=== PATIENT | female | born 1955 | race Caucasian/White ===

== ENCOUNTER 2019-02-03 02:47 | Emergency (ER) | payer BC, OTHER ==
[~2019-02-03] VITALS: Ht 157.5 cm; Wt 102.1 kg
[2019-02-03 03:08] LABS: BASOPHILS # (AUTO) 0.1 10^3/uL (0.0-0.1); BASOPHILS % (AUTO) 0 % (0-10); EOSINOPHILS # (AUTO) 0.4 10^3/uL (0.0-0.3); EOSINOPHILS % (AUTO) 3 % (0-10); HEMATOCRIT 41 % (35-52); HEMOGLOBIN 14.1 G/DL (11.5-16.0); LYMPHOCYTES # (AUTO) 1.9 X 10^3 (1.0-4.0); LYMPHOCYTES % (AUTO) 13 % (12-44); MEAN CORPUSCULAR HEMOGLOBIN 32 PG (25-34); MEAN CORPUSCULAR HGB CONC 35 G/DL (32-36); MEAN CORPUSCULAR VOLUME 91 FL (80-99); MEAN PLATELET VOLUME 10.4 FL (7.4-10.4); MONOCYTES % (AUTO) 7 % (0-12); NEUTROPHILS # (AUTO) 11.9 X 10^3 (1.8-7.8); NEUTROPHILS % (AUTO) 78 % (42-75); PLATELET COUNT 274 10^3/uL (130-400); RED CELL DISTRIBUTION WIDTH 13.2 % (10.0-14.5); WHITE BLOOD COUNT 15.2 10^3/uL (4.3-11.0)
[2019-02-03] MEDS ORDERED: FAMOTIDINE 20MG/2ML IV (PEPCID) IVP ONE (03:15)
[2019-02-03] MEDS ORDERED: LIDOCAINE 2% VISCOUS 15 ML UDC PO ONE (03:15)
[2019-02-03] MEDS ORDERED: ONDANSETRON 4 MG/2 ML (SDV) Z0FRAN IVP ONE (03:15)
[2019-02-03] MEDS ORDERED: ANTACID SUSP 30 ML UDC (MYLANTA) PO ONE (03:15)
[2019-02-03 03:24] LABS: INR 0.9 (0.8-1.4); PROTHROMBIN TIME PATIENT 12.3 SEC (12.2-14.7)
[2019-02-03 03:32] LABS: ALANINE AMINOTRANSFERASE 24 U/L (0-55); ALBUMIN 4.6 GM/DL (3.2-4.5); ALKALINE PHOSPHATASE 115 U/L (40-136); BILIRUBIN,TOTAL 0.9 MG/DL (0.1-1.0); BUN/CREATININE RATIO 18; CALCIUM 10.4 MG/DL (8.5-10.1); CARBON DIOXIDE 22 MMOL/L (21-32); CHLORIDE 97 MMOL/L (98-107); CREATININE SERUM 1.01 MG/DL (0.60-1.30); GFR ESTIMATED 55; GLUCOSE 145 MG/DL (70-105); LIPASE 13 U/L (8-78); POTASSIUM 5.1 MMOL/L (3.6-5.0); SODIUM 135 MMOL/L (135-145); TOTAL PROTEIN 8.2 GM/DL (6.4-8.2)
[2019-02-03] MEDS ORDERED: fentaNYL INJECTION 100 MCG/2 ML AMP IVP ONE ×2 (04:00→06:15)
--- NOTE | 2019-02-03 04:09 | ED Abdominal Pain ---
General Chief Complaint: Abdominal/GI Problems Stated Complaint: STOMACH PAIN, THROWING UP Nursing Triage Note: Pt complaining of epigastric pain that started around midnight tonight. Pt took Prilosec for heartburn but states that it didn't help. Sepsis Screen: No Definite Risk Source of Information: Patient, EMS (PROSPER ALMENDAREZ MD) History of Present Illness Date Seen by Provider: February 03, 2019 Time Seen by Provider: 02:53 Initial Comments This 63-year-old woman presents to the emergency room with a burning pain in the epigastric region since around midnight. She has had intermittent episodes similar to this over the past few years but they usually improve and short time and with acid reducing medications. This pain has not improved. She rates the pain as 9/10. The pain seems to have a burning sensation radiating up into the chest like heartburn. She has tenderness in the epigastrium. She takes omeprazole 20 mg daily as directed by her PCP. She did have an episode of vomiting with this pain and a little bit of diarrhea. (PROSPER ALMENDAREZ MD) Allergies and Home Medications Allergies Coded Allergies: No Known Drug Allergies (Unverified , 02/03/19) Patient Home Medication List Home Medication List Reviewed: Yes (PROSPER ALMENDAREZ MD) Review of Systems Review of Systems Constitutional: no symptoms reported EENTM: No Symptoms Reported Respiratory: No Symptoms Reported Cardiovascular: No Symptoms Reported Gastrointestinal: See HPI Genitourinary: No Symptoms Reported Musculoskeletal: no symptoms reported Skin: no symptoms reported Psychiatric/Neurological: No Symptoms Reported Endocrine: No Symptoms Reported (PROSPER ALMENDAREZ MD) Past Ehlnyjf-Ijmxjm-Rbbjgh Hx Past Med/Social Hx: Reviewed Nursing Past Med/Soc Hx (PROSPER ALMENDAREZ MD) Patient Social History Alcohol Use: Denies Use Recreational Drug Use: No Smoking Status: Never a Smoker 2nd Hand Smoke Exposure: No Recent Foreign Travel: No Contact w/Someone Who Travel: No Recent Infectious Disease Expo: No Recent Hopitalizations: No Physical Abuse: No Sexual Abuse: No Mistreated: No (PROSPER ALMENDAREZ MD) Past Medical History Surgeries: Yes Hysterectomy Respiratory: No Cardiac: Yes High Cholesterol, Hypertension Neurological: No Genitourinary: No Gastrointestinal: Yes Gastroesophageal Reflux Musculoskeletal: No Endocrine: No HEENT: No Cancer: No Psychosocial: No Integumentary: No Blood Disorders: No (PROSPER ALMENDAREZ MD) Physical Exam Vital Signs Vital Signs - First Documented 02/03/19 02/03/19 03:10 06:30 Temp 97.5 Pulse 64 Resp 18 B/P (MAP) 158/79 (105) Pulse Ox 97 O2 Delivery Room Air O2 Flow Rate 2.00 (PARTHA HOLLINGSWORTH) Vital Signs Capillary Refill : Less Than 3 Seconds (PROSPER ALMENDAREZ MD) Height/Weight/BMI Height: 5'2.00" Weight: 225lbs. oz. 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, no motor/sensory deficits, alert, normal mood/affect, oriented x 3 Skin: normal color, warm/dry (PROSPER ALMENDAREZ MD) Progress/Results/Core Measures Results/Orders Lab Results Laboratory Tests Test 02/03/19 03:00 02/03/19 04:47 Range/Units White Blood Count 15.2 H 4.3-11.0 10^3/uL Red Blood Count 4.46 4.35-5.85 10^6/uL Hemoglobin 14.1 11.5-16.0 G/DL Hematocrit 41 35-52 % Mean Corpuscular Volume 91 80-99 FL Mean Corpuscular Hemoglobin 32 25-34 PG Mean Corpuscular Hemoglobin Concent 35 32-36 G/DL Red Cell Distribution Width 13.2 10.0-14.5 % Platelet Count 274 130-400 10^3/uL Mean Platelet Volume 10.4 7.4-10.4 FL Neutrophils (%) (Auto) 78 H 42-75 % Lymphocytes (%) (Auto) 13 12-44 % Monocytes (%) (Auto) 7 0-12 % Eosinophils (%) (Auto) 3 0-10 % Basophils (%) (Auto) 0 0-10 % Neutrophils # (Auto) 11.9 H 1.8-7.8 X 10^3 Lymphocytes # (Auto) 1.9 1.0-4.0 X 10^3 Monocytes # (Auto) 1.0 0.0-1.0 X 10^3 Eosinophils # (Auto) 0.4 H 0.0-0.3 10^3/uL Basophils # (Auto) 0.1 0.0-0.1 10^3/uL Neutrophils % (Manual) 82 % Lymphocytes % (Manual) 10 % Monocytes % (Manual) 4 % Eosinophils % (Manual) 4 % Prothrombin Time 12.3 12.2-14.7 SEC INR Comment 0.9 0.8-1.4 Activated Partial Thromboplast Time 31 24-35 SEC Sodium Level 135 135-145 MMOL/L Potassium Level 5.1 H 3.6-5.0 MMOL/L Chloride Level 97 L 98-107 MMOL/L Carbon Dioxide Level 22 21-32 MMOL/L Anion Gap 16 H 5-14 MMOL/L Blood Urea Nitrogen 18 7-18 MG/DL Creatinine 1.01 0.60-1.30 MG/DL Estimat Glomerular Filtration Rate 55 BUN/Creatinine Ratio 18 Glucose Level 145 H 70-105 MG/DL Calcium Level 10.4 H 8.5-10.1 MG/DL Corrected Calcium 8.5-10.1 MG/DL Magnesium Level 3.0 H 1.8-2.4 MG/DL Total Bilirubin 0.9 0.1-1.0 MG/DL Aspartate Amino Transf (AST/SGOT) 36 H 5-34 U/L Alanine Aminotransferase (ALT/SGPT) 24 0-55 U/L Alkaline Phosphatase 115 40-136 U/L Myoglobin 32.3 10.0-92.0 NG/ML Troponin I < 0.028 <0.028 NG/ML Total Protein 8.2 6.4-8.2 GM/DL Albumin 4.6 H 3.2-4.5 GM/DL Lipase 13 8-78 U/L Urine Color YELLOW Urine Clarity CLEAR Urine pH 6.5 5-9 Urine Specific [place] 1.010 L 1.016-1.022 Urine Protein NEGATIVE NEGATIVE Urine Glucose (UA) NEGATIVE NEGATIVE Urine Ketones NEGATIVE NEGATIVE Urine Nitrite NEGATIVE NEGATIVE Urine Bilirubin NEGATIVE NEGATIVE Urine Urobilinogen NORMAL NORMAL MG/DL Urine Leukocyte Esterase NEGATIVE NEGATIVE Urine RBC (Auto) NEGATIVE NEGATIVE Urine RBC NONE /HPF Urine WBC NONE /HPF Urine Squamous Epithelial Cells 0-2 /HPF Urine Crystals NONE /LPF Urine Bacteria TRACE /HPF Urine Casts NONE /LPF Urine Mucus NEGATIVE /LPF Urine Culture Indicated NO (PARTHA HOLLINGSWORTH) My Orders Orders - PARTHA HOLLINGSWORTH Fentanyl Injection (Sublimaze Injection (02/03/19 06:15) (PARTHA HOLLINGSWORTH) Medications Given in ED Current Medications Medications Dose Ordered Sig/Russell Route Start Time Stop Time Status Last Admin Dose Admin Al Hydrox/Mg Hydrox/Simethicone 30 ml ONCE ONCE PO 02/03/19 03:15 02/03/19 03:16 DC 02/03/19 03:19 30 ML Famotidine 20 mg ONCE ONCE IVP 02/03/19 03:15 02/03/19 03:16 DC 02/03/19 03:20 20 MG Fentanyl Citrate 50 mcg ONCE ONCE IVP 02/03/19 04:00 02/03/19 04:01 DC 02/03/19 04:00 50 MCG Fentanyl Citrate 100 mcg ONCE ONCE IVP 02/03/19 06:15 02/03/19 06:16 DC 02/03/19 06:13 100 MCG Lidocaine HCl 15 ml ONCE ONCE PO 02/03/19 03:15 02/03/19 03:16 DC 02/03/19 03:19 15 ML Ondansetron HCl 8 mg ONCE ONCE IVP 02/03/19 03:15 02/03/19 03:16 DC 02/03/19 03:19 8 MG (PARTHA HOLLINGSWORTH) Vital Signs/I&O 02/03/19 02/03/19 02/03/19 02/03/19 03:10 05:15 06:30 06:31 Temp 97.5 Pulse 64 59 56 Resp 18 16 16 B/P (MAP) 158/79 (105) 139/57 (84) 123/46 (71) Pulse Ox 97 96 99 O2 Delivery Room Air Room Air Nasal Cannula Nasal Cannula O2 Flow Rate 2.00 2.00 (PARTHA HOLLINGSWORTH) Blood Pressure Mean: 105 Progress Progress Note #1: Time: 04:07 Progress Note Patient reports her pain decreased from 9/10 down to 5/10 after GI cocktail. She states there is still pain in the epigastrium and left upper quadrant as well as tenderness to palpation. Workup has been unremarkable thus far except for white count of 15,000 and minor electrolyte abnormalities. I discussed further workup with the patient including CT scan of the abdomen and pelvis to assess for other causes of her abdominal pain such as cholecystitis, perforated ulcer, etc. Risk of radiation exposure was discussed. Patient except to risk and wishes to proceed with CT scan. Fentanyl is being given for additional pain control. Progress Note #2: Time: 06:[address] demonstrated sludge and/or tiny stones layering in the gallbladder. There is no evidence of acute cholecystitis. By my interpretation, there appears to be some calcification of the gallbladder wall. Case was discussed with Dr. Kapadia. Since he would likely direct the patient to have a ultrasound scan of the gallbladder on an outpatient basis, we elected to hold the patient here until until the ultrasound technicians arrived this morning. Patient is agreeable to this plan. We will keep her nothing by mouth until then. Pain is presently controlled. Care of this patient is being transitioned to Dr. Hollingsworth. He will communicate ultrasound results to Dr. Kapadia. (PROSPER ALMENDAREZ MD) Progress Note : Time: 06:19 Progress Note Met the patient and reviewed the history and examination and agree with the above documented history examination by Dr. Martin. Assumed care of the patient at shift change. I agree with plan to obtain an ultrasound this morning as outlined out by general surgery. Patient says her pain is coming back and would like something more. They prefer her to be nothing by mouth so we'll give her some fentanyl. She says the 50 g before did not really do much for her so we have ordered 100 g. Her plan is to sleep for the next hour and a half. (PARTHA HOLLINGSWORTH) Initial ECG Impression Date: February 03, 2019 Initial ECG Impression Time: 03:14 Initial ECG Rate: 61 Initial ECG Rhythm: Normal Sinus Initial ECG Intervals: Normal Initial ECG Impression: Normal Comment Normal sinus rhythm with no ST elevation or depression. No abnormal intervals or axis deviation. (PROSPER ALMENDAREZ MD) Diagnostic Imaging Diagonstic Imaging: Xray Plain Films/CT/US/NM/MRI: chest Comments Chest x-ray viewed by me. Report not yet available. Elevation of the right hemidiaphragm. No other acute abnormalities appreciated. (PROSPER ALMENDAREZ MD) Comments NAME: NANDO GREENBERG [facility] REC#: [id number] PT STATUS: REG ER : 1955 PHYSICIAN: PROSPER ALMENDAREZ MD ADMIT DATE: 02/03/19/ER Draft Date of Exam:02/03/19 CHEST 1 VIEW, AP/PA ONLY INDICATION: Epigastric pain, chest pain. TECHNIQUE: Single frontal view of the chest. COMPARISON: None FINDINGS: The lung volumes are normal. No focal consolidation is seen. A calcified granuloma is seen at the right lung base. No large pleural effusion or pneumothorax is seen. The cardiomediastinal silhouette is normal in size and contour. No acute osseous abnormality is seen. IMPRESSION: No acute pulmonary abnormality seen. Dictated on workstation # [id number] Dict: 02/03/19719 Trans: 02/03/19 0721 [id number] Interpreted by: ULICES LAGUERRE MD Electronically signed by: Diagonstic Imaging: CT Plain Films/CT/US/NM/MRI: abdomen, pelvis Comments NAME: NANDO GREENBERG [facility] REC#: [id number] PT STATUS: REG ER : 1955 PHYSICIAN: PROSPER ALMENDAREZ MD ADMIT DATE: 02/03/19/ER Draft Date of Exam:02/03/19 CT ABDOMEN/PELVIS W PROCEDURE: CT abdomen and pelvis with contrast. TECHNIQUE: Multiple contiguous axial images were obtained through the abdomen and pelvis after administration of intravenous contrast. Auto Exposure Controls were utilized during the CT exam to meet ALARA standards for radiation dose reduction. INDICATION: Epigastric pain. COMPARISON: None FINDINGS: There is a calcified granuloma at the right lung base. The heart is normal in size. The liver demonstrates calcified granulomas. There is a 5 mm hypodense focus in the right liver which is too small to characterize. Splenic granulomas are noted. The spleen appears normal. There is a 13 mm right adrenal adenoma. The left adrenal gland appears normal. The kidneys appear normal. A small splenule is noted. There are tiny hyperdense calculi in the gallbladder without pericholecystic edema or significant wall thickening appreciated. There is a very small hiatal hernia. The bowel loops are nondistended without evidence of obstruction. The appendix is normal. There is no free fluid or free air. There is mild sigmoid colon diverticulosis without diverticulitis. No acute osseous abnormality is seen. There are advanced degenerative changes at L1-L2. IMPRESSION: 1. Minimal cholelithiasis. No CT findings of cholecystitis. 2. Very small hiatal hernia. 3. Colonic diverticulosis without diverticulitis. 4. Small right adrenal adenoma. Dictated on workstation # [id number] Dict: 02/03/19719 Trans: 02/03/1933 [id number] Interpreted by: ULICES LAGUERRE MD Electronically signed by: Reviewed: Reviewed by Me Diagonstic Imaging: Ultrasound Plain Films/CT/US/NM/MRI: abdomen (ruq) Comments Sludge but no stones. Gallbladder wall thickness 2.2 with greatest diameter. No pericholecystic fluid or evidence of inflammation. Reviewed: Reviewed by Me (PARTHA HOLLINGSWORTH) Consults : Consulting Physician: CLAUDE KAPADIA MD Consults Notes Discussed case lab imaging with Dr. Kapadia and he would like to see the patient tomorrow at 1400. (PARTHA HOLLINGSWORTH) Departure Impression Primary Impression: Epigastric pain Additional Impressions: Nausea vomiting and diarrhea Leukocytosis Qualified Codes: D72.829 - Elevated white blood cell count, unspecified Disposition: HOME, SELF-CARE Condition: Improved Departure-Patient Inst. Decision time for Depature: 07:40 (PARTHA HOLLINGSWORTH) Referrals: DAVID JACOBSON MD (PCP) Primary Care Physician CLAUDE KAPADIA MD Patient Instructions: HIDA Scan (DC) Add. Discharge Instructions: There is no evidence that you're having an infection in your gallbladder. The gallbladder however does have some sludge which can sometimes cause problems with emptying and result in a lot of pain and nausea. There are other possibilities and these can all be discussed outpatient with Dr. Kapadia, general surgery. He would like to see you tomorrow, 02/04/2019@1400 in the clinic to discuss these possibilities and appropriate management. Continue to take a daily antacid such as omeprazole 40 mg. Would be reasonable also use of Rolaids, Tums, Maalox etc. if you're having a re-flare of your pain. Avoid spicy, greasy foods or dairy and eat lots of fiber. You might start with a liquid diet and advance it towards more solid foods as you tolerated without nausea or pain. If you have nausea take one tablet of Zofran every 6 hours as needed. If you have difficulty and pain that Tylenol or ibuprofen doesn't help then you may use the hydrocodone one tablet every 6 hours as needed. All discharge instructions reviewed with patient and/or family. Voiced understanding. Scripts Hydrocodone Bit/Acetaminophen (Hydrocodone/Acetaminophen 5/325mg Tablet) 1 Tab Tab 1-2 EACH PO Q6H PRN for PAIN-MODERATE MDD 10 for 3 Days, #14 TAB 0 Refills Prov: PARTHA HOLLINGSWORTH 02/03/19 Ondansetron (Ondansetron Odt) 4 Mg Tab.rapdis 4 MG PO Q6H PRN for NAUSEA/VOMITING, #8 TAB 0 Refills Prov: PARTHA HOLLINGSWORTH 02/03/19 Work/School Note: Work Release Form Date Seen in the Emergency Department: February 03, 2019 Return to Work: February 04, 2019 Restrictions: No Restrictions PROSPER ALMENDAREZ MD February 03, 2019 04:09 PARTHA HOLLINGSWORTH February 03, 2019 06:18
[2019-02-03 04:15] LABS: EOSINOPHILS % (MANUAL) 4 %; LYMPHOCYTES % (MANUAL) 10 %; MONOCYTES % (MANUAL) 4 %; NEUTROPHILS % (MANUAL) 82 %
[2019-02-03] MEDS ORDERED: HOLD METFORMIN - RECEIVED CONTRAST 20 ML VIAL IV SCH (04:15)
[2019-02-03] MEDS ORDERED: IOHEXOL 350 MG/ML 100 ML (OMNIPAQUE 350) VIAL IV ONE (04:15)
[2019-02-03 04:56] LABS: BILIRUBIN,URINE NEGATIVE (NEGATIVE); CLARITY,URINE CLEAR; COLOR,URINE YELLOW; GLUCOSE, URINE (UA) NEGATIVE (NEGATIVE); KETONES,URINE NEGATIVE (NEGATIVE); LEUKOCYTE ESTERASE ,URINE NEGATIVE (NEGATIVE); NITRITE,URINE NEGATIVE (NEGATIVE); PH,URINE 6.5 (5-9); PROTEIN,URINE NEGATIVE (NEGATIVE); UROBILINOGEN,URINE NORMAL (NORMAL)
[2019-02-03 05:10] LABS: BACTERIA,URINE TRACE /HPF; SQUAMOUS EPITHELIAL CELL,UR 0-2 /HPF
[2019-02-03 05:15] VITALS: BP 139/57
[2019-02-03 06:31] VITALS: BP 123/46
--- NOTE | 2019-02-03 07:21 | Diagnostic Imaging Report ---
INDICATION: Epigastric pain, chest pain. TECHNIQUE: Single frontal view of the chest. COMPARISON: None FINDINGS: The lung volumes are normal. No focal consolidation is seen. A calcified granuloma is seen at the right lung base. No large pleural effusion or pneumothorax is seen. The cardiomediastinal silhouette is normal in size and contour. No acute osseous abnormality is seen. IMPRESSION: No acute pulmonary abnormality seen. Dictated by: Dictated on workstation # [id number]
--- NOTE | 2019-02-03 07:34 | Diagnostic Imaging Report ---
PROCEDURE: CT abdomen and pelvis with contrast. TECHNIQUE: Multiple contiguous axial images were obtained through the abdomen and pelvis after administration of intravenous contrast. Auto Exposure Controls were utilized during the CT exam to meet ALARA standards for radiation dose reduction. INDICATION: Epigastric pain. COMPARISON: None FINDINGS: There is a calcified granuloma at the right lung base. The heart is normal in size. The liver demonstrates calcified granulomas. There is a 5 mm hypodense focus in the right liver which is too small to characterize. Splenic granulomas are noted. The spleen appears normal. There is a 13 mm right adrenal adenoma. The left adrenal gland appears normal. The kidneys appear normal. A small splenule is noted. There are tiny hyperdense calculi in the gallbladder without pericholecystic edema or significant wall thickening appreciated. There is a very small hiatal hernia. The bowel loops are nondistended without evidence of obstruction. The appendix is normal. There is no free fluid or free air. There is mild sigmoid colon diverticulosis without diverticulitis. No acute osseous abnormality is seen. There are advanced degenerative changes at L1-L2. IMPRESSION: 1. Minimal cholelithiasis. No CT findings of cholecystitis. 2. Very small hiatal hernia. 3. Colonic diverticulosis without diverticulitis. 4. Small right adrenal adenoma. Dictated by: Dictated on workstation # [id number]
[2019-02-03] MEDS ORDERED: ACHD5005 PO (07:50)
[2019-02-03] MEDS ORDERED: ONDA4TAB11 PO (07:50)
--- NOTE | 2019-02-03 07:51 | Diagnostic Imaging Report ---
REASON FOR EXAM: Abdominal pain, vomiting. COMPARISON: CT from the same day. TECHNIQUE: Grayscale and Doppler ultrasound performed in the right upper quadrant of the abdomen to evaluate the liver and gallbladder. FINDINGS: The liver is normal in size and shape. The liver echogenicity is mildly increased. There are no focal lesions. No intrahepatic biliary dilatation is present. The common bile duct is not seen, obscured by bowel gas. The main portal vein is hepatopetal. There is no evidence of cholelithiasis, gallbladder wall thickening or pericholecystic fluid. Sonographic Mcneal's sign is negative. The pancreas is not seen due to bowel gas. No free fluid is seen. The right kidney measures approximately 8.9 cm in length and has a normal appearance. IMPRESSION: 1. No sonographic findings of cholelithiasis or acute cholecystitis. 2. Mildly increased liver echogenicity, may be due to fatty infiltration. Dictated by: Dictated on workstation # [id number]
[2019-02-03 08:04] VITALS: BP 123/46
== END 2019-02-03 08:04 | disposition home or self-care (01) ==
LOC: ER 02:50
DX: R10.13 Epigastric pain (principal); R11.2 Nausea with vomiting, unspecified; R19.7 Diarrhea, unspecified; D72.829 Elevated white blood cell count, unspecified; E78.00 Pure hypercholesterolemia, unspecified; I10 Essential (primary) hypertension; K21.9 Gastro-esophageal reflux disease without esophagitis; Z90.710 Acquired absence of both cervix and uterus
CPT/HCPCS: 36415; 71045; 74177; 76705; 80053; 81000; 83690; 83735; 83874; 84484; 85007; 85027; 85610; 85730; 93005; 93041

== ENCOUNTER → 2019-06-02 | Outpatient (CLI) | payer BC ==
[~2019-06-02] MED LIST: ACHD5005 PO; ONDA4TAB11 PO
--- NOTE | 2019-06-02 14:19 | Diagnostic Imaging Report ---
INDICATION: Chronic left hip pain. COMPARISON: None. FINDINGS: Two views of the left hip were obtained and show no fractures, dislocations, or other acute bony abnormalities. Joint spaces are well maintained throughout. The soft tissues appear unremarkable. No radiopaque foreign bodies are identified. IMPRESSION: Unremarkable radiographic exam of the left hip. Dictated by: Dictated on workstation # [id number]
== END ==
LOC: RAD FS 14:05
PROVIDERS: ATTEND Nurse Practitioner
DX: G89.29 Other chronic pain (principal); M25.552 Pain in left hip
CPT/HCPCS: 73502

== ENCOUNTER → 2019-06-10 | Outpatient (CLI) | payer BC ==
--- NOTE | 2019-06-10 15:05 | Diagnostic Imaging Report ---
PROCEDURE: MRI lumbar spine. TECHNIQUE: Multiplanar, multisequence MRI of the lumbar spine was performed without contrast. INDICATION: Chronic low back pain. COMPARISON: No prior studies are available for comparison. FINDINGS: Curvature of the lumbar spine is normal. There is minimal retrolisthesis of L1 on L2 and L2 on L3. The vertebral body heights are maintained. No acute compression fracture or geographic marrow lesion is seen. There is significant degenerative disc disease at L1-L2 and L2-L3 levels where there is significant disc space narrowing as well as desiccation and marginal osteophyte formation. Conus is unremarkable at the L1 level. T12-L1: Central canal is widely patent. Neural foramina are patent. L1-L2: Broad-based disc/osteophyte complex does indent the ventral thecal sac. There is moderate narrowing of the central canal. There is narrowing of the lateral recesses bilaterally. Bilateral neural foraminal narrowing is present. There does appear to be moderate clumping of the nerve roots. L2-L3: Broad-based disc/osteophyte complex indents the ventral thecal sac. There is ligamentous thickening and facet changes resulting in moderate central canal stenosis. Significant bilateral lateral recess stenosis is seen as well as moderate left and mild right neural foraminal stenosis. There does appear to be some clumping of the nerve roots, similar to the level above. L3-L4: Hypertrophic facet changes and ligamentous thickening with broad-based disc/osteophyte complex does produce significant trefoil stenosis of the central canal. There is significant bilateral lateral recess stenosis as well as mild bilateral neural foraminal stenosis. L4-L5: Hypertrophic facet changes and ligamentous thickening as well as broad-based disc/osteophyte complex does result in significant trefoil central canal stenosis. There is also significant bilateral lateral recess stenosis and mild bilateral neural foraminal stenosis. L5-S1: Hypertrophic facet changes are noted. There is moderate central canal narrowing. Lateral recesses are patent. Neural foramina are patent. Paraspinous tissues are unremarkable. IMPRESSION: Significant multilevel lumbar spondylosis with multilevel central canal, lateral recess and neural foraminal stenosis described level by level above. Dictated by: Dictated on workstation # [id number]
== END ==
LOC: RAD 13:07
PROVIDERS: ATTEND Nurse Practitioner
DX: M47.26 Other spondylosis with radiculopathy, lumbar region (principal); M51.16 Intervertebral disc disorders with radiculopathy, lumbar region; M48.07 Spinal stenosis, lumbosacral region
CPT/HCPCS: 72148

== ENCOUNTER → 2019-07-01 | Outpatient (CLI) | payer BC ==
--- NOTE | 2019-07-01 14:15 | Diagnostic Imaging Report ---
INDICATION: SI joint pain. COMPARISON: Left hip exam dated 06/02/2019. FINDINGS: A single AP view of the pelvis was performed. There is no radiographic evidence of acute fracture or dislocation. Pubic symphysis is within normal limits. SI joints are symmetric. Proximal femurs are intact, bilaterally. The femoro-acetabular joint spaces appear maintained on this single frontal view. Remainder of the bony pelvis is intact as well. No unexpected radiopaque foreign bodies are seen. Included small bowel loops are nondistended. Impression: 1. No radiographic evidence of acute fracture or dislocation of the bony pelvis. Dictated by: Dictated on workstation # [id number]
== END ==
LOC: RAD FS 13:42
PROVIDERS: ATTEND Nurse Practitioner
DX: M53.3 Sacrococcygeal disorders, not elsewhere classified (principal); R10.2 Pelvic and perineal pain
CPT/HCPCS: 72170

== ENCOUNTER 2019-12-13 07:01 | Emergency (ER) | payer MEDICARE, OTHER ==
[~2019-12-13] VITALS: Ht 157.4 cm; Wt 102.2 kg
--- OUTSIDE RECORDS SUMMARY | 2019-12-13 07:07 | XMS REPORT | Continuity of Care Document ---
Author Organization Unknown Address Unknown Phone Unavailable Allergies Active Description Code Type Severity Reaction Onset Reported/Identified Relationship to Patient Clinical Status Yes NO KNOWN DRUG ALLERGIES UNKNOWN UNKNOWN Yes No Known Drug Allergies [id number] Drug Allergy Unknown N/A 02/03/2019 Medications Medication Packaging Start Date St op Date Route Dosage Sig LACTATED RINGERS 1000CC IV BAG INJ ml 02/21/2019 02/28/2019 CONTINUOUSEVERY 0 Hour CEFAZOLIN VIAL INJ 1 GM (ANCEF) GM 02/24/2019 02/24/2019 ONCE&1200 HYDROCODONE/APAP 7.5/325 TAB (YULISSA-TAB 7.5/ 325) TAB 02/24/2019 03/06/2019 PRN EVERY 4 Hour Problems Date Dx Coded Attending Type Code Diagnosis Diagnosed By 02/03/2019 PARTHA RODRIGUEZ MD Ot D72.829 ELEVATED WHITE BLOOD CELL COUNT, UNSPECI 02/03/2019 PARTHA RODRIGUEZ MD Ot E78. 00 PURE HYPERCHOLESTEROLEMIA, UNSPECIFIED 02/03/2019 PARTHA RODRIGUEZ MD Ot I10 ESSENTIAL (PRIMARY) HYPERTENSION 02/03/2019 PARTHA RODRIGUEZ MD Ot K21. 9 GASTRO-ESOPHAGEAL REFLUX DISEASE WITHOUT 02/03/2019 PARTHA RODRIGUEZ MD Ot R10. 13 EPIGASTRIC PAIN 02/03/2019 PARTHA RODRIGUEZ MD Ot R11. 2 NAUSEA WITH VOMITING, UNSPECIFIED 02/03/2019 PARTAH RODRIGUEZ MD Ot R19. 7 DIARRHEA, UNSPECIFIED 02/03/2019 PARTHA RODRIGUEZ MD Ot Z90.710 ACQUIRED ABSENCE OF BOTH CERVIX AND UTER 02/09/2019 PARTHA RODRIGUEZ MD Ot D72.829 ELEVATED WHITE BLOOD CELL COUNT, UNSPECI 02/09/2019 PARTHA RODRIGUEZ MD Ot E78. 00 PURE HYPERCHOLESTEROLEMIA, UNSPECIFIED 02/09/2019 PARTHA RODRIGUEZ MD Ot I10 ESSENTIAL (PRIMARY) HYPERTENSION 02/09/2019 PARTHA RODRIGUEZ MD Ot K21. 9 GASTRO-ESOPHAGEAL REFLUX DISEASE WITHOUT 02/09/2019 MICHAEL WHITNEY, PARTHA Escalante Ot R10. 13 EPIGASTRIC PAIN 02/09/2019 MICHAEL WHITNEY, PARTHA Escalante Ot R11. 2 NAUSEA WITH VOMITING, UNSPECIFIED 02/09/2019 MICHAEL WHITNEY, PARTHA Escalante Ot R19. 7 DIARRHEA, UNSPECIFIED 02/09/2019 MICHAEL WHITNEY, PARTHA Escalante Ot Z90.710 ACQUIRED ABSENCE OF BOTH CERVIX AND UTER 02/24/2019 JAKOB MARTINEZ W 530.8 1 ESOPHAGEAL REFLUX 02/24/2019 JAKOB MARTINEZ W 552.3 DIAPHRAGMATIC HERNIA WITH OBSTRUCTION 02/24/2019 JAKOB MARTINEZ W 575.1 1 CHRONIC CHOLECYSTITIS 02/24/2019 JAKOB MARTINEZ W 575.6 CHOLESTEROLOSIS OF GALLBLADDER 02/24/2019 JAKOB MARTINEZ W K21.0 GASTRO-ESOPHAGEAL REFLUX DISEASE WITH ESOPHAGITIS 02/24/2019 JAKOB MARTINEZ W K44.9 DIAPHRAGMATIC HERNIA WITHOUT OBSTRUCTION OR GANGRENE 02/24/2019 JAKOB MARTINEZ W K81.1 CHRONIC CHOLECYSTITIS 02/24/2019 JAKOB MARTINEZ W K82.4 CHOLESTEROLOSIS OF GALLBLADDER 06/13/2019 CHIOMA GARCIA Ot M47.26 OTHER SPONDYLOSIS WITH RADICULOPATHY, MARYCRUZ 06/13/2019 CHIOMA GARCIA Ot M48.07 SPINAL STENOSIS, LUMBOSACRAL REGION 06/13/2019 CHIOMA GARCIA Ot M51.16 INTERVERTEBRAL DISC DISORDERS W RADICULO 06/16/2019 CHIOMA GARCIA Ot M47.26 OTHER SPONDYLOSIS WITH RADICULOPATHY, MARYCRUZ 06/16/2019 CHIOMA GARCIA Ot M48.07 SPINAL STENOSIS, LUMBOSACRAL REGION 06/16/2019 CHIOMA GARCIA Ot M51.16 INTERVERTEBRAL DISC DISORDERS W RADICULO 06/19/2019 CHIOMA GARCIA Ot G89.29 OTHER CHRONIC PAIN 06/19/2019 CHIOMA GARCIA Ot M25.552 PAIN IN LEFT HIP 06/26/2019 CHIOMA GARCIA Ot M47.26 OTHER SPONDYLOSIS WITH RADICULOPATHY, MARYCRUZ 06/26/2019 CHIOMA GARCIA Ot M48.07 SPINAL STENOSIS, LUMBOSACRAL REGION 06/26/2019 CHIOMA GARCIA Ot M51.16 INTERVERTEBRAL DISC DISORDERS W RADICULO 07/16/2019 CHIOMA GARCIA Ot M53.3 SACROCOCCYGEAL DISORDERS, NOT ELSEWHERE 07/16/2019 CHIOMA GARCIA Ot R10.2 PELVIC AND PERINEAL PAIN Procedures There is no data. Results Test Result Range Complete blood count (CBC) with automate d white blood cell (WBC) differential - 02/03/19 03:00 Blood leukocytes automated count (number/volume) 15.2 10*3/uL 4.3-11.0 Blood erythrocytes automated count (number/volume) 4.46 10*6/uL 4.35-5.85 Venous blood hemoglobin measurement (mass/volume) 14.1 g/dL 11.5-16.0 Blood hematocrit (volume fraction) 41 % 35-52 Automated erythrocyte mean corpuscular volume 91 [ foz_us] 80-99 Automated erythrocyte mean corpuscular h emoglobin (mass per erythrocyte) 32 pg 25-34 Automated erythrocyte mean corpuscular h emoglobin concentration measurement (mass/volume) 35 g/dL 32-36 Automated erythrocyte distribution width ratio 13. 2 % 10.0- 14.5 Automated blood platelet count (count/volume) 274 10*3/uL 130-400 Automated blood platelet mean volume measurement 10.4 [foz_us] 7.4-10.4 Automated blood neutrophils/100 leukocytes 78 % 42-75 Automated blood lymphocytes/100 leukocytes 13 % 12-44 Blood monocytes/100 leukocytes 7 % 0-12 Automated blood eosinophils/100 leukocytes 3 % 0-10 Automated blood basophils/100 leukocytes 0 % 0-10 Blood neutrophils automated count (number/volume) 11.9 10*3 1.8-7.8 Blood lymphocytes automated count (number/volume) 1.9 10*3 1.0-4.0 Blood monocytes automated count (number/volume) 1. 0 10*3 0.0-1.0 Automated eosinophil count 0.4 10*3/uL 0 .0-0.3 Automated blood basophil count (count/volume) 0.1 10*3/uL 0.0-0.1 Magnesium - 02/03/19 03:00 Magnesium 3.0 mg/dL 1.8-2.4 PT panel in platelet poor plasma by coag ulation assay - 02/03/19 03:00 Prothrombin time (PT) in platelet poor plasma by coagu lation assay 12.3 s 12.2-14.7 INR in platelet poor plasma or blood by coagulation as say 0.9 0.8-1.4 Activated partial thromboplastin time (a PTT) in platelet poor plasma bycoagulation assay - 02/03/19 03:00 Activated partial thromboplastin time (a PTT) in platelet poor plasma bycoagulation assay 31 s 24-35 Comprehensive metabolic panel - 02/03/19 03:00 Serum or plasma sodium measurement (moles/volume) 135 mmol/L 135-145 Serum or plasma potassium measurement (moles/volume) 5.1 mmol/L 3.6-5.0 Serum or plasma chloride measurement (moles/volume) 97 mmol/L 98-107 Carbon dioxide 22 mmol/L 21-32 Serum or plasma anion gap determination (moles/volume) 16 mmol/L 5-14 Serum or plasma urea nitrogen measurement (mass/volume ) 18 mg/dL 7-18 Serum or plasma creatinine measurement (mass/volume) 1.01 mg/dL 0.60-1.30 Serum or plasma urea nitrogen/creatinine mass ratio 18 NRG Serum or plasma creatinine measurement w ith calculation of estimated glomerular filtration rate 55 NRG Serum or plasma glucose measurement (mass/volume) 145 mg/dL 70-105 Serum or plasma calcium measurement (mass/volume) 10.4 mg/dL 8.5-10.1 Serum or plasma total bilirubin measurement (mass/volu me) 0.9 mg/dL 0.1-1.0 Serum or plasma alkaline phosphatase vita surement (enzymatic activity/volume) 115 U/L 40-136 Serum or plasma aspartate aminotransfera se measurement (enzymatic activity/volume) 36 U/L 5-34 Serum or plasma alanine aminotransferase measurement (enzymatic activity/volume) 24 U/L 0-55 Serum or plasma protein measurement (mass/volume) 8.2 g/dL 6.4-8.2 Serum or plasma albumin measurement (mass/volume) 4.6 g/dL 3.2-4.5 Lipase - 02/03/19 03:00 Lipase 13 U/L 8-78 Serum or plasma troponin i.cardiac measu rement (mass/volume) - 02/03/19 03:00 Serum or plasma troponin i.cardiac measurement (mass/v olume) < ng/mL <0.028 Myoglobin, serum - 02/03/19 03:00 Myoglobin, serum 32.3 ng/mL 10.0-92.0 Blood manual differential performed dete ction - 02/03/19 03:00 Blood monocytes/100 leukocytes 4 % NRG Manual blood segmented neutrophils/100 leukocytes 82 % NRG Manual blood lymphocytes/100 leukocytes 10 % NRG Manual eosinophils/100 leukocytes in nose 4 % NRG Complete urinalysis with reflex to cultu re - 02/03/19 04:47 Urine color determination YELLOW NRG Urine clarity determination CLEAR NR G Urine pH measurement by test strip 6.5 5-9 Specific gravity of urine by test strip 1.010 1.016-1.022 Urine protein assay by test strip, semi-quantitative NEGATIVE NEGATIVE Urine glucose detection by automated test strip NE GATIVE NEGATIVE Erythrocytes detection in urine sediment by light micr oscopy NEGATIVE NEGATIVE Urine ketones detection by automated test strip NE GATIVE NEGATIVE Urine nitrite detection by test strip NEGATIVE NEGATIVE Urine total bilirubin detection by test strip NEGA TIVE NEGATIVE Urine urobilinogen measurement by automated test strip (mass/volume) NORMAL NORMAL Urine leukocyte esterase detection by dipstick NEG ATIVE NEGATIVE Automated urine sediment erythrocyte cou nt by microscopy (number/high power field) NONE NRG Automated urine sediment leukocyte count by microscopy (number/high power field) NONE NRG Bacteria detection in urine sediment by light microsco py TRACE NRG Squamous epithelial cells detection in u rine sediment by light microscopy 0-2 NRG Crystals detection in urine sediment by light microsco py NONE NRG Casts detection in urine sediment by light microscopy NONE NRG Mucus detection in urine sediment by light microscopy NEGATIVE NRG Complete urinalysis with reflex to culture NO NRG EKG - 02/18/19 14:18 EKG Complete Comprehensive Metabolic Panel - 02/18/19 14:18 Albumin 4.2 g/dL 3.6-5.1 ALP 96 U/L 35-130 ALT 18 U/L 6-45 Anion Gap 13 6-14 AST 16 U/L 2-40 BUN 15 mg/dL 5-25 Calcium 9.6 mg/dL 8.3-10.4 Chloride 97 mmol/L 95-114 CO2 26 mEq/L 22-33 Creat 0.94 mg/dL 0.50-1.50 eGFR 60 mL/min/1.73m2 >59 Globulin 2.4 g/dL 2.3-3.5 Glucose 119 mg/dL 70-110 Osmo 275 280-295 Potassium 3.9 mmol/L 3.5-5.3 Sodium 132 mmol/L 134-148 TBil 0.8 mg/dL 0.2-1.2 TP 6.6 g/dL 6.0-8.3 MRSA Screen - 02/18/19 14:18 FINAL CULTURE RESULTS MRSA Negative Nasal Culture MEDIA PLATED Setup at 15:01 on 02/18/2019 Surgical Pathology - 02/24/19 13:20 Surg Path Sent to [facility] Pathology Encounters ACCT No. Visit Date/Time Discharge Status Pt. Type Provider Facility Loc./Unit Complaint [id number] 02/24/2019 10:17:00 02/24/2019 15:46: 00 DIS Outpatient JAKOB MARTINEZ [id number] 02/18/2019 13:59:00 02/18/2019 23:59: 00 DIS Outpatient Wilman Kapadia [id number] 02/21/2019 13:42:54 Document Registration [id number] 02/18/2019 13:59:00 Document Registration [id number] 07/01/2019 13:42:00 23:59:59 CLS Outpatient CHIOMA GARCIA [facility] RAD FS R10.2 [id number] 06/10/2019 13:07:00 23:59:59 CLS Outpatient CHIOMA GARCIA [facility] RAD LUMBAR RADICULOPATHY [id number] 06/02/2019 14:05:00 23:59:59 CLS Outpatient CHIOMA GARCIA [facility] RAD FS M25.552 [id number] 02/03/2019 02:50:00 08:04:00 DIS Emergency MICHAEL WHITNEY, PARTHA Escalante [facility] ER STOMACH PAIN, THROWING UP
[2019-12-13] MEDS ORDERED: ESCI10TA55 (07:26)
[2019-12-13] MEDS ORDERED: QUIN40TA14 (07:26)
[2019-12-13] MEDS ORDERED: CHLO50TA2 (07:26)
[2019-12-13] MEDS ORDERED: MECL-149 (07:26)
[2019-12-13] MEDS ORDERED: BACL10TA (07:26)
[2019-12-13] MEDS ORDERED: ATOR10TA66 (07:26)
[2019-12-13] MEDS ORDERED: METO50TA7 (07:26)
[2019-12-13] MEDS ORDERED: MELO15TA39 (07:26)
[2019-12-13] MEDS ORDERED: SPIR50TA4 (07:26)
--- NOTE | 2019-12-13 07:27 | ED Respiratory ---
General Chief Complaint: Respiratory Problems Stated Complaint: SOA Nursing Triage Note: AMB TO ROOM WOKE UP FEELNG JACI. CONCERN IT MIGHT BE HER HYDROCODONE. NO DISTRESS ON ADMIT. 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 HAS BEEN ON HYDROCODONE FOR YEARS. HAS HTN--STATES SHE TOOK ALL OF HER MEDICATIONS THIS MORNING PCP: DR. SALAS AT [facility] CARDIOLOGY: DR. HUNT AT [facility] [place] PAIN MANAGEMENT: Allergies and Home Medications Allergies Coded Allergies: No Known Drug Allergies (Unverified , 02/03/19) Home Medications Hydrocodone Bit/Acetaminophen 1 Tab Tab, 1-2 EACH PO Q6H PRN for PAIN-MODERATE Prescribed by: PARTHA RODRIGUEZ on 02/03/19 0750 Ondansetron 4 Mg Tab.rapdis, 4 MG PO Q6H PRN for NAUSEA/VOMITING Prescribed by: PARTHA RODRIGUEZ on 02/03/19 0750 Patient Home Medication List Home Medication List Reviewed: Yes Review of Systems Review of Systems Constitutional: no symptoms reported; No chills, No diaphoresis, No dizziness, No fever EENTM: no symptoms reported Respiratory: see HPI; No cough, No orthopnea, No phlegm; short of breath; No wheezing Cardiovascular: see HPI; No edema, No syncope Gastrointestinal: no symptoms reported Genitourinary: no symptoms reported Musculoskeletal: see HPI (CHRONIC BACK AND NECK PAIN ) Skin: no symptoms reported Psychiatric/Neurological: Anxiety Hematologic/Lymphatic: No Symptoms Reported Immunological/Allergic: no symptoms reported Past Wzmlced-Ielcun-Kwryic Hx Past Med/Social Hx: Reviewed and Corrections made Patient Social History Alcohol Use: Denies Use Recreational Drug Use: No Smoking Status: Never a Smoker 2nd Hand Smoke Exposure: No Recent Foreign Travel: No Contact w/Someone Who Travel: No Recent Infectious Disease Expo: No Recent Hopitalizations: No Past Medical History Surgeries: Yes (C-SPINE SURGERY; HYST/BSO; CHOLECYSTECTOMY) Gallbladder, Hysterectomy, Neurological, Oophorectomy, Orthopedic Respiratory: No Cardiac: Yes High Cholesterol, Hypertension, Palpitations 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 oz. 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, no motor/sensory deficits, alert, oriented x 3, other (ANXIOUS) Skin: normal color, warm/dry Progress/Results/Core Measures Suspected Sepsis Recent Fever Within 48 Hours: No Infection Criteria Present: None New/Unexplained Altered Menta: No Sepsis Screen: No Definite Risk SIRS Temperature: Pulse: 68 Respiratory Rate: 18 Laboratory Tests 12/13/19 07:30: White Blood Count 6.3 Blood Pressure 190 /88 Mean: 122 Laboratory Tests 12/13/19 07:30: Creatinine 0.89, Platelet Count 180, Total Bilirubin 1.8H 12/13/19 08:19: INR Comment 1.0 Results/Orders Lab Results Laboratory Tests Test 12/13/19 07:30 12/13/19 08:19 Range/Units White Blood Count 6.3 4.3-11.0 10^3/uL Red Blood Count 4.17 L 4.35-5.85 10^6/uL Hemoglobin 13.2 11.5-16.0 G/DL Hematocrit 39 35-52 % Mean Corpuscular Volume 94 80-99 FL Mean Corpuscular Hemoglobin 32 25-34 PG Mean Corpuscular Hemoglobin Concent 34 32-36 G/DL Red Cell Distribution Width 13.3 10.0-14.5 % Platelet Count 180 130-400 10^3/uL Mean Platelet Volume 11.0 H 7.4-10.4 FL Neutrophils (%) (Auto) 73 42-75 % Lymphocytes (%) (Auto) 13 12-44 % Monocytes (%) (Auto) 10 0-12 % Eosinophils (%) (Auto) 3 0-10 % Basophils (%) (Auto) 1 0-10 % Neutrophils # (Auto) 4.6 1.8-7.8 X 10^3 Lymphocytes # (Auto) 0.8 L 1.0-4.0 X 10^3 Monocytes # (Auto) 0.6 0.0-1.0 X 10^3 Eosinophils # (Auto) 0.2 0.0-0.3 10^3/uL Basophils # (Auto) 0.0 0.0-0.1 10^3/uL Sodium Level 137 135-145 MMOL/L Potassium Level 4.4 3.6-5.0 MMOL/L Chloride Level 102 98-107 MMOL/L Carbon Dioxide Level 23 21-32 MMOL/L Anion Gap 12 5-14 MMOL/L Blood Urea Nitrogen 12 7-18 MG/DL Creatinine 0.89 0.60-1.30 MG/DL Estimat Glomerular Filtration Rate > 60 BUN/Creatinine Ratio 13 Glucose Level 117 H 70-105 MG/DL Calcium Level 10.0 8.5-10.1 MG/DL Corrected Calcium 8.5-10.1 MG/DL Magnesium Level 2.0 1.6-2.4 MG/DL Total Bilirubin 1.8 H 0.1-1.0 MG/DL Aspartate Amino Transf (AST/SGOT) 23 5-34 U/L Alanine Aminotransferase (ALT/SGPT) 25 0-55 U/L Alkaline Phosphatase 82 40-136 U/L Troponin I < 0.028 <0.028 NG/ML B-Type Natriuretic Peptide 144.0 H <100.0 PG/ML Total Protein 7.1 6.4-8.2 GM/DL Albumin 4.6 H 3.2-4.5 GM/DL Prothrombin Time 13.4 12.2-14.7 SEC INR Comment 1.0 0.8-1.4 Activated Partial Thromboplast Time 28 24-35 SEC Micro Results Microbiology 12/13/19 Influenza Types A,B Antigen (TACOS) - Final, Complete My Orders Orders - DORI ROSAS DO Ed Iv/Invasive Line Start (12/13/19 07:06) Ekg Tracing (12/13/19 07:06) Monitor-Rhythm Ecg Trace Only (12/13/19 07:06) BNP (12/13/19 07:06) Cbc With Automated Diff (12/13/19 07:06) Comprehensive Metabolic Panel (12/13/19 07:06) Magnesium (12/13/19 07:06) Protime With Inr (12/13/19 07:06) Partial Thromboplastin Time (12/13/19 07:06) Blood Culture (12/13/19 07:06) Influenza A And B Antigens (12/13/19 07:06) Troponin I (12/13/19 07:06) Chest 1 View, Ap/Pa Only (12/13/19 07:11) Ct Angio Chest W (12/13/19 08:46) Iohexol Injection (Omnipaque 350 Mg/Ml 1 (12/13/19 09:15) Received Contrast (Hold Metformin- Contr (12/13/19 09:15) Ns (Ivpb) (Sodium Chloride 0.9% Ivpb Bag (12/13/19 09:15) Medications Given in ED Current Medications Medications Dose Ordered Sig/Russell Route Start Time Stop Time Status Last Admin Dose Admin Iohexol 100 ml ONCE ONCE IV 12/13/19 09:15 12/13/19 09:16 DC 12/13/19 09:52 83 ML Sodium Chloride 100 ml ONCE ONCE IV 12/13/19 09:15 12/13/19 09:16 DC 12/13/19 09:53 80 ML Vital Signs/I&O 12/13/19 12/13/19 07:02 10:17 Temp 36.8 Pulse 68 61 Resp 18 18 B/P (MAP) 190/88 (122) 160/69 Pulse Ox 95 97 O2 Delivery Room Air Room Air Capillary Refill : Less Than 3 Seconds Blood Pressure Mean: 122 Progress Note : Progress Note BP DOWN WITH OUT TREATMENT PT COMPLETELY SYMPTOM-FREE DURING ENTIRE ER STAY ADVISED OF IMPORTANCE OF FOLLOW UP WITH HER PCP FOR HILAR MEDIASTINAL ADENOPATHY NOTED ON CT SCAN. ECG Initial ECG Impression Date: Dec 13, 2019 Initial ECG Impression Time: 07:34 Initial ECG Rate: 56 Initial ECG Rhythm: Normal Sinus Initial ECG Impression: Normal Diagnostic Imaging Comments CXR--NO ACUTE PROCESS, PER RADIOLOGIST REPORT AT 0845 CT CHEST ANGIOGRAM--NO P.E. OR OTHER ACUTE PROCESS, TINY PLEURAL EFFUSION, HILAR MEDIASTINAL ADENOPATHY OF UNCERTAIN ETIOLOGY--PER RADIOLOGIST REPORT AT 1010 Reviewed: Reviewed by Me Departure Impression Primary Impression: SUBJECTIVE DYSPNEA Additional Impressions: HTN (hypertension) HILAR MEDIASTINAL ADENOPATHY Disposition: 01 HOME, SELF-CARE Condition: Stable Departure-Patient Inst. Referrals: CARLOS EDUARDO SALAS MD (PCP/Family) Primary Care Physician Patient Instructions: High Blood Pressure (DC), Lymphadenitis (DC), Shortness of Breath (Dyspnea) (DC) Add. Discharge Instructions: CONTINUE YOUR REGULAR MEDICATIONS PRESCRIBED FOLLOW UP WITH YOUR NEXT WEEK FOR FURTHER CARE All discharge instructions reviewed with patient and/or family. Voiced understanding. DORI ROSAS DO Dec 13, 2019 07:27
[2019-12-13 08:10] LABS: BASOPHILS % (AUTO) 1 % (0-10); EOSINOPHILS # (AUTO) 0.2 10^3/uL (0.0-0.3); EOSINOPHILS % (AUTO) 3 % (0-10); HEMATOCRIT 39 % (35-52); HEMOGLOBIN 13.2 G/DL (11.5-16.0); LYMPHOCYTES # (AUTO) 0.8 X 10^3 (1.0-4.0); LYMPHOCYTES % (AUTO) 13 % (12-44); MEAN CORPUSCULAR HEMOGLOBIN 32 PG (25-34); MEAN CORPUSCULAR HGB CONC 34 G/DL (32-36); MEAN CORPUSCULAR VOLUME 94 FL (80-99); MONOCYTES # (AUTO) 0.6 X 10^3 (0.0-1.0); MONOCYTES % (AUTO) 10 % (0-12); NEUTROPHILS # (AUTO) 4.6 X 10^3 (1.8-7.8); NEUTROPHILS % (AUTO) 73 % (42-75); PLATELET COUNT 180 10^3/uL (130-400); RED CELL DISTRIBUTION WIDTH 13.3 % (10.0-14.5); WHITE BLOOD COUNT 6.3 10^3/uL (4.3-11.0)
[2019-12-13 08:29] LABS: ALANINE AMINOTRANSFERASE 25 U/L (0-55); ALBUMIN 4.6 GM/DL (3.2-4.5); ALKALINE PHOSPHATASE 82 U/L (40-136); BILIRUBIN,TOTAL 1.8 MG/DL (0.1-1.0); BUN/CREATININE RATIO 13; CARBON DIOXIDE 23 MMOL/L (21-32); CHLORIDE 102 MMOL/L (98-107); CREATININE SERUM 0.89 MG/DL (0.60-1.30); GFR ESTIMATED > 60; GLUCOSE 117 MG/DL (70-105); POTASSIUM 4.4 MMOL/L (3.6-5.0); SODIUM 137 MMOL/L (135-145); TOTAL PROTEIN 7.1 GM/DL (6.4-8.2)
--- NOTE | 2019-12-13 08:40 | Diagnostic Imaging Report ---
EXAM: CHEST 1 VIEW, AP/PA ONLY INDICATION: Shortness of air. COMPARISON: 02/03/2019. FINDINGS: Low lung volumes accentuate the heart size. Normal central pulmonary vascularity. Elevation of the right hemidiaphragm. Calcified granuloma in the right lung base. No new focal pulmonary opacity, pleural effusion or pneumothorax. No significant change. IMPRESSION: No acute cardiopulmonary findings. Dictated by: Dictated on workstation # [id number]
[2019-12-13 09:04] LABS: PROTHROMBIN TIME PATIENT 13.4 SEC (12.2-14.7)
[2019-12-13] MEDS ORDERED: HOLD METFORMIN - RECEIVED CONTRAST 20 ML VIAL IV SCH (09:15)
[2019-12-13] MEDS ORDERED: IOHEXOL 350 MG/ML 100 ML (OMNIPAQUE 350) VIAL IV ONE (09:15)
[2019-12-13] MEDS ORDERED: NS 100 ML (IVPB) BAG IV ONE (09:15)
--- NOTE | 2019-12-13 10:03 | Diagnostic Imaging Report ---
PROCEDURE: CT angiography of the chest with contrast. TECHNIQUE: Multiple contiguous axial images were obtained through the chest after uneventful bolus administration of intravenous contrast. 3D reconstructed CTA MIP acquisitions were also performed. Auto Exposure Controls were utilized during the CT exam to meet ALARA standards for radiation dose reduction. INDICATION: Shortness of air. FINDINGS: There are no intraluminal pulmonary arterial filling defects. Thoracic aorta is patent and nonaneurysmal. There is no pericardial effusion. There are minute amounts of pleural fluid on the right at only a few millimeter depth nonloculated. This patient has a mild nonspecific hilar and mediastinal lymphadenopathy. There are mediastinal nodes in the upper and lower paratracheal space, The periaortic space and the prevascular space. Largest node is in the right upper paratracheal mediastinum measuring a diameter of 1.9 cm. The largest node in the subcarinal mediastinum measures 3.8 x 2.3 cm. There is bilateral hilar adenopathy, the largest is on the left measuring 1.8 cm. No suspicious lung nodule or dominant pulmonary parenchymal mass. There is no pneumothorax. There were no findings felt suggestive of focal pneumonia or pulmonary edema. The visualized upper abdomen demonstrates low-density fat-containing right adrenal benign adenoma, the partially visualized liver nonfocal, the gallbladder surgically absent. This patient has a small hiatal hernia. IMPRESSION: 1. Negative for PE or acute aortic disease. 2. Tiny right pleural effusion. 3. Hilar mediastinal lymphadenopathy of uncertain etiology. Given the number and magnitude of montserrat enlargement, a followup exam within 3 months' time suggested. We noted no appreciable upper abdominal adenopathy and a benign fat-containing adrenal adenoma. Dictated by: Dictated on workstation # [id number]
[2019-12-13 10:17] VITALS: BP 160/69
== END 2019-12-13 10:17 | disposition home or self-care (01) ==
LOC: EDUNIT# 07:01 → ER 07:03
DX: R06.09 Other forms of dyspnea (principal); I10 Essential (primary) hypertension; R59.9 Enlarged lymph nodes, unspecified
CPT/HCPCS: 36415; 71045; 71275; 80053; 83735; 83880; 84484; 85025; 85610; 85730; 87040; 87804; 93005; 93041

== ENCOUNTER → 2020-03-22 | Outpatient (CLI) | payer MEDICARE, OTHER ==
[~2020-03-22] MED LIST changes: +ATOR10TA66; +BACL10TA; +CHLO50TA2; +ESCI10TA55; +MECL-149; +MELO15TA39; +METO50TA7; +QUIN40TA14; +SPIR50TA4
--- NOTE | 2020-03-22 10:44 | Diagnostic Imaging Report ---
PROCEDURE: CT chest without contrast. TECHNIQUE: Multiple contiguous axial images were obtained through the chest without the use of intravenous contrast. Auto Exposure Controls were utilized during the CT exam to meet ALARA standards for radiation dose reduction. INDICATION: Lymphadenopathy. COMPARED: 12/13/2019 A somewhat triangular configured right upper paratracheal mediastinal node measures 18 x 14 mm today, decreased from 23 x 17 mm on prior. Subcarinal montserrat mass today measures 33 x 19 mm, previously 41 x 24 mm decreased. While hilar montserrat evaluation is challenged by the absence of vascular contrast on today's study, the hilar fullness and presumed adenopathy has decreased. No effusion on followup. There is no pneumothorax. Additional smaller paratracheal mediastinal nodes are stable or slightly diminished as well. There has been no adverse interval development. Lungs themselves are clear. No suspicious pulmonary nodule or acute infiltrate. Benign calcified granuloma in the right middle lobe chronic. Visualized upper abdomen demonstrates a right adrenal nodule stable with macroscopic fat consistent with benign finding. IMPRESSION: Nonspecific mediastinal and hilar adenopathy improved in the interim with no lung mass, acute infiltrate or adverse change. Dictated by: Dictated on workstation # [id number]
== END ==
LOC: RAD FS 09:57
PROVIDERS: ATTEND Family Medicine
DX: R59.1 Generalized enlarged lymph nodes (principal)
CPT/HCPCS: 71250

== ENCOUNTER → 2020-04-08 | Outpatient (CLI) | payer MEDICARE, OTHER ==
--- NOTE | 2020-04-08 11:05 | Diagnostic Imaging Report ---
EXAMINATION: Right foot at 857 INDICATION: Bump on foot 3 views were obtained. There are no prior studies for comparison. Reportedly the patient has a "knot." Along the anterior aspect of the midfoot. The lateral view does show a roughly 2.5 cm raised soft tissue density in this area. Whether this finding is related to a solid or cystic mass is uncertain. There is no abnormality of the underlying osseous structures in this region. If further imaging is desired, then either ultrasound or preferably MRI would be recommended. There is no fracture, dislocation or acute bony abnormality evident. The Lisfranc joint is well maintained. There is a prominent calcaneal spur. IMPRESSION: 1. There is a soft tissue density along the anterior aspect of the midfoot. Considerations and recommendations as above. 2. There is no acute bony abnormality noted. Dictated by: Dictated on workstation # [id number]
== END ==
LOC: RAD FS 08:49
PROVIDERS: ATTEND Nurse Practitioner
DX: M85.871 Other specified disorders of bone density and structure, right ankle and foot (principal)
CPT/HCPCS: 73630

== ENCOUNTER → 2021-10-13 | Outpatient (CLI) | payer MEDICARE, OTHER ==
[~2021-10-13] MED LIST changes: +ESCI-2; -ESCI10TA55
--- NOTE | 2021-10-13 12:24 | Diagnostic Imaging Report ---
INDICATION: Right foot pain for 5 months. TIME OF EXAM: 10:39 AM Three views of the right foot were obtained. There appears to be a fracture at the base of the 5th metatarsal, transversely oriented. The remaining metatarsals are intact. Phalanges are intact. Midfoot and hindfoot are unremarkable apart from a large plantar calcaneal spur. IMPRESSION: Fracture at the base of the 5th metatarsal. Dictated by: Dictated on workstation # [id number]
== END ==
LOC: RAD FS 10:27
PROVIDERS: ATTEND Nurse Practitioner
DX: S92.351D Displaced fracture of fifth metatarsal bone, right foot, subsequent encounter for fracture with routine healing (principal); S90.31XD Contusion of right foot, subsequent encounter; X58.XXXD Exposure to other specified factors, subsequent encounter
CPT/HCPCS: 73630

== ENCOUNTER 2023-04-06 00:31 | Emergency (ER) | payer MEDICARE, OTHER ==
[~2023-04-06] VITALS: Ht 157.5 cm; Wt 102.2 kg
[~2023-04-06 00:31] MED LIST changes: -QUIN40TA14; +QUIN40TA34
[2023-04-06] MEDS ORDERED: fentaNYL INJ 100 MCG/2 ML AMP IVP STA (01:11)
[2023-04-06] MEDS ORDERED: LIDOCAINE UROJET 2% GEL 10 ML PKG TOP ONE (01:15)
--- NOTE | 2023-04-06 01:18 | ED Back Pain ---
General Stated Complaint: POST OP SURGERY ISSUES,CONSTIPATION,PAIN Source of Information: Patient History of Present Illness Date Seen by Provider: Apr 06, 2023 Time Seen by Provider: 01:05 Initial Comments PT ARRIVES VIA POV FROM HOME, NEEDS WHEELCHAIR ON ARRIVAL AND ASSIST OUT OF VEHICLE PT WITH CHRONIC BACK PAIN, AND L1-L4 LUMBAR LAMINECTOMY AT [facility]) IN [place], [place] ON Sunday04/02/23 AND WAS RELEASED THE FOLLOWING MORNING SHE WAS SENT HOME ON HYDROCODONE 7.5/325--STATES "IT'S NOT TOUCHING IT" --RATES PAIN " SHE STATES PAIN HAS BEEN GETTING WORSE SINCE SURGERY AND ESPECIALLY WORSE SINCE LAST NIGHT. SHE HAD BEEN ON BACLOFEN IN THE PAST, BUT IS NOT ON IT OR ANY MUSCLE RELAXANT NOW. SHE STATES SHE HAS NOT BEEN ABLE TO URINATE OR HAVE A BM SINCE SURGERY--HAD A BM ON 04/03/23 AFTER DRINKING PRUNE JUICE. SHE HAS NOT TAKEN ANYTHING OR DONE ANYTHING AT ALL FOR CONSTIPATION SINCE THEN SHE IS NOT HAVING ANY PARESTHESIAS OR MOTOR DEFICITS. SHE IS EATING AND DRINKING OK NO NAUSEA/VOMITING. THE ONLY ABDOMINAL PAIN SHE IS HAVING IS DUE TO BLADDER DISTENTION AND NOT BEING ABLE TO URINATE. PT SAW HER SURGEON TODAY FOR THIS PROBLEM IN [place], AND SHE WAS PRESCRIBED PERCOCET, BUT COULD NOT PICK IT UP BECAUSE SHE FILLED RX FOR HYDROCODONE YESTERDAY. SHE HAS A FOLLOW UP APPOINTMENT WITH HER SURGEON 04/19/23 PT DOES HAVE HOME HEALTH. Other Comments PCP: DR. SALAS Allergies and Home Medications Allergies Coded Allergies: No Known Drug Allergies (Unverified , 02/03/19) Patient Home Medication List Home Medication List Reviewed: Yes Atorvastatin Calcium (Atorvastatin Calcium) 10 Mg Tablet, (Reported) Entered as Reported by: MARIAN OCHOA on 12/13/19725 Baclofen (Baclofen) 10 Mg Tablet, (Reported) Entered as Reported by: MARIAN OCHOA on 12/13/19725 Baclofen (Baclofen) 10 Mg Tablet, 10 MG PO TID Prescribed by: DORI ROSAS on 04/06/23 0217 Chlorthalidone (Chlorthalidone) 50 Mg Tablet, (Reported) Entered as Reported by: MARIAN OCHOA on 12/13/19725 Escitalopram Oxalate (Escitalopram Oxalate) 10 Mg Tablet, (Reported) Entered as Reported by: MARIAN OCHOA on 12/13/19725 Hydrocodone Bit/Acetaminophen (Lortab 5 Mg Tablet) 1 Tab Tab, 1-2 EACH PO Q6H PRN for PAIN-MODERATE Prescribed by: PARTHA RODRIGUEZ on 02/03/19749 Meclizine HCl (Meclizine HCl) 25 Mg Tablet, (Reported) Entered as Reported by: MARIAN OCHOA on 12/13/19725 Meloxicam (Meloxicam) 15 Mg Tablet, (Reported) Entered as Reported by: MARIAN OCHOA on 12/13/19725 Metoprolol Succinate (Metoprolol Succinate) 50 Mg Tab.er.24h, (Reported) Entered as Reported by: MARIAN OCHOA on 12/13/19725 Ondansetron (Ondansetron Odt) 4 Mg Tab.rapdis, 4 MG PO Q6H PRN for NAUSEA/VOMITING Prescribed by: PARTHA RODRIGUEZ on 02/03/19749 Quinapril HCl (Quinapril HCl) 40 Mg Tablet, (Reported) Entered as Reported by: MARIAN OCHOA on 12/13/19725 Spironolactone (Spironolactone) 50 Mg Tablet, (Reported) Entered as Reported by: MARIAN OCHOA on 12/13/19725 Review of Systems Constitutional: no symptoms reported Respiratory: no symptoms reported Cardiovascular: no symptoms reported Gastrointestinal: see HPI, constipation Genitourinary: see HPI Musculoskeletal: see HPI, back pain Skin: no symptoms reported Psychiatric/Neurological: No Symptoms Reported; Denies Numbness, Denies Paresthesia, Denies Tingling, Denies Weakness Past Vswbtlj-[id number]-Xsrixq Hx Patient Social History Tobacco Use?: No Substance use?: No Alcohol Use?: No Past Medical History Surgeries: Yes (C-SPINE SURGERY; HYST/BSO; CHOLECYSTECTOMY;L1-L4 LAMINECTOMY) Gallbladder, Hysterectomy, Neurological, Oophorectomy, Orthopedic Respiratory: No Cardiac: Yes High Cholesterol, Hypertension, Palpitations 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 ( [facility]) IN [place], [place] BY DR. ORTIZ. Physical Exam Vital Signs Vital Signs - First Documented 04/06/23 04/06/23 01:05 01:45 Temp 36.8 Pulse 77 Resp 16 B/P (MAP) 199/103 (135) Pulse Ox 97 O2 Delivery Room Air O2 Flow Rate 2.00 Capillary Refill : Height, Weight, BMI Height: 5'2.00" Weight: 225lbs. oz. 102.811341vn; 41.00 BMI Method:Stated General Appearance: WD/WN, Anxious, Obese Cardiovascular: Regular Rate, Rhythm, Normal Peripheral Pulses Respiratory: Normal Breath Sounds Gastrointestinal: Tenderness (TENDER OVER DISTENDED BLADDER) Back: Other (DIFFUSE LOWER BACK TENDERNESS. ) Extremity: Normal Capillary Refill, No Pedal Edema Neurologic/Psychiatric: Alert, Oriented x3, No Motor/Sensory Deficits Skin: Normal Color, Warm/Dry Progress/Results/Core Measures Results/Orders Lab Results Laboratory Tests Test 04/06/23 01:25 04/06/23 01:30 Range/Units Urine Color YELLOW Urine Clarity CLEAR Urine pH 6.5 5-9 Urine Specific [place] <=1.005 1.016-1.022 Urine Protein NEGATIVE NEGATIVE Urine Glucose (UA) NEGATIVE NEGATIVE Urine Ketones NEGATIVE NEGATIVE Urine Nitrite NEGATIVE NEGATIVE Urine Bilirubin NEGATIVE NEGATIVE Urine Urobilinogen 0.2 < = 1.0 MG/DL Urine Leukocyte Esterase NEGATIVE NEGATIVE Urine RBC (Auto) NEGATIVE NEGATIVE Urine RBC NONE /HPF Urine WBC NONE /HPF Urine Crystals NONE /LPF Urine Bacteria TRACE /HPF Urine Casts NONE /LPF Urine Mucus NEGATIVE /LPF Urine Culture Indicated NO White Blood Count 12.9 H 4.3-11.0 10^3/uL Red Blood Count 2.92 L 3.80-5.11 10^6/uL Hemoglobin 10.2 L 11.5-16.0 g/dL Hematocrit 30 L 35-52 % Mean Corpuscular Volume 101 H 80-99 fL Mean Corpuscular Hemoglobin 35 H 25-34 pg Mean Corpuscular Hemoglobin Concent 35 32-36 g/dL Red Cell Distribution Width 12.9 10.0-14.5 % Platelet Count 192 130-400 10^3/uL Mean Platelet Volume 10.6 9.0-12.2 fL Immature Granulocyte % (Auto) 1 % Neutrophils (%) (Auto) 75 42-75 % Lymphocytes (%) (Auto) 9 L 12-44 % Monocytes (%) (Auto) 11 0-12 % Eosinophils (%) (Auto) 4 0-10 % Basophils (%) (Auto) 0 0-10 % Neutrophils # (Auto) 9.7 H 1.8-7.8 10^3/uL Lymphocytes # (Auto) 1.1 1.0-4.0 10^3/uL Monocytes # (Auto) 1.4 H 0.0-1.0 10^3/uL Eosinophils # (Auto) 0.5 H 0.0-0.3 10^3/uL Basophils # (Auto) 0.1 0.0-0.1 10^3/uL Immature Granulocyte # (Auto) 0.2 H 0.0-0.1 10^3/uL Sodium Level 132 L 135-145 MMOL/L Potassium Level 4.6 3.6-5.0 MMOL/L Chloride Level 97 L 98-107 MMOL/L Carbon Dioxide Level 24 21-32 MMOL/L Anion Gap 11 5-14 MMOL/L Blood Urea Nitrogen 18 7-18 MG/DL Creatinine 0.87 0.60-1.30 MG/DL Estimat Glomerular Filtration Rate 73 BUN/Creatinine Ratio 21 Glucose Level 128 H 70-105 MG/DL Calcium Level 9.5 8.5-10.1 MG/DL My Orders Orders - DORI ROSAS DO Ed Iv/Invasive Line Start (04/06/23 01:11) Catheter(Urinary) Insert & Ass 03,15 (04/06/23 01:11) Fentanyl Inj (Sublimaze Injection) (04/06/23 01:11) Lidocaine 2% (Urojet) (Xylocaine Urojet) (04/06/23 01:15) Diazepam Injection (Valium Injection) (04/06/23 01:15) Basic Metabolic Panel (04/06/23 01:28) Cbc With Automated Diff (04/06/23 01:28) O2 (04/06/23 01:43) Ua Culture If Indicated (04/06/23 01:57) Medications Given in ED Current Medications Medications Dose Ordered Sig/Russell Route Start Time Stop Time Status Last Admin Dose Admin Diazepam 5 mg ONCE ONCE IVP 04/06/23 01:15 04/06/23 01:16 DC 04/06/23 02:20 2.5 MG Vital Signs/I&O 04/06/23 04/06/23 04/06/23 01:05 01:45 02:30 Temp 36.8 36.8 Pulse 77 76 Resp 16 16 B/P (MAP) 199/103 (135) 167/72 Pulse Ox 97 98 O2 Delivery Room Air Nasal Cannula Room Air O2 Flow Rate 2.00 Progress Progress Note : Progress Note PATIENT IS ABLE TO TRANSFER FROM WHEELCHAIR TO STANDING WITH ASSISTANCE. SHE IS ABLE TO THEN STAND ON HER OWN, THEN TRANSFER TO ER CART WITH SOME ASSISTANCE. GIVEN: -FENTANYL -VALIUM PAIN IMPROVED AT DISMISSAL WOO PLACED--RETURN OF 1000 ML URINE. PT REQUESTS THAT IT BE LEFT IN PLACE. THIS WAS CONVERTED TO LEG BAG PRIOR TO DISMISSAL AND PT WAS INSTRUCTED ON USE. LABS UNREMARKABLE, URINE IS CLEAR DISCUSSED TEST RESULTS, ANTICIPATED COURSE, MEDICATIONS, NEED FOR FOLLOW UP AND RETURN PRECAUTIONS. REVIEWED PRIOR RECORDS, ONLY 2 ER VISITS Departure Impression Primary Impression: Postoperative pain after spinal surgery Additional Impressions: Postoperative urinary retention CONSTIPATION OPIATE INDUCED CONSTIPATION Disposition: HOME, SELF-CARE Condition: Improved Departure-Patient Inst. Decision time for Depature: 02:10 Referrals: CARLOS EDUARDO SALAS MD (PCP/Family) Primary Care Physician Patient Instructions: Constipation, Adult (DC), Woo Catheter, Postoperative Pain (DC), Urinary Retention (DC) Add. Discharge Instructions: GET YOUR PRESCRIPTION FOR PERCOCET FILLED TODAY AND TAKE PRESCRIBED DO NOT TAKE HYDROCODONE WHILE YOU ARE TAKING PERCOCET WOO CATHETER CARE INSTRUCTED. TAKE MIRALAX 1 CAPFUL IN 8 OZ OF WATER EVERY 30 MINUTES UNTIL YOUR BOWELS ARE CLEANED OUT, THEN START TAKING MIRALAX EVERY DAY YOU MAY ALSO USE DULCOLAX SUPPOSITORIES AND FLEET'S ENEMAS RECTALLY TO HELP MOVE YOUR BOWELS. CONTINUE ALL YOUR REGULAR MEDICATIONS PRESCRIBED CONTINUE ALL POST OP INSTRUCTIONS FOLLOW UP WITH YOUR SURGEON FOR FURTHER CARE--CALL TODAY TO SCHEDULE AN APPOINTMENT YOU MAY ALSO FOLLOW UP WITH DR. SALAS THIS WEEK FOR FURTHER CARE--CALL TODAY TO SCHEDULE AN APPOINTMENT Scripts Baclofen (Baclofen) 10 Mg Tablet 10 MG PO TID, #21 TAB Prov: DORI ROSAS DO 04/06/23 DORI ROSAS DO Apr 06, 2023 01:18
[2023-04-06 01:42] LABS: BASOPHILS # (AUTO) 0.1 10^3/uL (0.0-0.1); BASOPHILS % (AUTO) 0 % (0-10); EOSINOPHILS # (AUTO) 0.5 10^3/uL (0.0-0.3); EOSINOPHILS % (AUTO) 4 % (0-10); HEMATOCRIT 30 % (35-52); HEMOGLOBIN 10.2 g/dL (11.5-16.0); LYMPHOCYTES # (AUTO) 1.1 10^3/uL (1.0-4.0); LYMPHOCYTES % (AUTO) 9 % (12-44); MEAN CORPUSCULAR HEMOGLOBIN 35 pg (25-34); MEAN CORPUSCULAR HGB CONC 35 g/dL (32-36); MEAN CORPUSCULAR VOLUME 101 fL (80-99); MEAN PLATELET VOLUME 10.6 fL (9.0-12.2); MONOCYTES # (AUTO) 1.4 10^3/uL (0.0-1.0); MONOCYTES % (AUTO) 11 % (0-12); NEUTROPHILS # (AUTO) 9.7 10^3/uL (1.8-7.8); NEUTROPHILS % (AUTO) 75 % (42-75); PLATELET COUNT 192 10^3/uL (130-400); WHITE BLOOD COUNT 12.9 10^3/uL (4.3-11.0)
[2023-04-06 01:50] LABS: POTASSIUM 4.6 MMOL/L (3.6-5.0)
[2023-04-06 01:51] LABS: CALCIUM 9.5 MG/DL (8.5-10.1)
[2023-04-06 01:56] LABS: CREATININE SERUM 0.87 MG/DL (0.60-1.30)
[2023-04-06 02:02] LABS: BILIRUBIN,URINE NEGATIVE (NEGATIVE); CLARITY,URINE CLEAR; COLOR,URINE YELLOW; GLUCOSE, URINE (UA) NEGATIVE (NEGATIVE); KETONES,URINE NEGATIVE (NEGATIVE); LEUKOCYTE ESTERASE ,URINE NEGATIVE (NEGATIVE); NITRITE,URINE NEGATIVE (NEGATIVE); PH,URINE 6.5 (5-9); PROTEIN,URINE NEGATIVE (NEGATIVE)
[2023-04-06] MEDS ORDERED: BACL10TA PO (02:17)
[2023-04-06 02:18] LABS: BACTERIA,URINE TRACE /HPF
[2023-04-06 02:30] VITALS: BP 167/72
== END 2023-04-06 02:30 | disposition home or self-care (01) ==
LOC: EDUNIT# 00:31 → ER 00:37
DX: G89.18 Other acute postprocedural pain (principal); R33.9 Retention of urine, unspecified; K59.03 Drug induced constipation; T40.605A Adverse effect of unspecified narcotics, initial encounter; E66.9 Obesity, unspecified; Z68.42 Body mass index [BMI] 45.0-49.9, adult
CPT/HCPCS: 36415; 51702; 80048; 81000; 85025

== ENCOUNTER 2023-05-16 05:44 | Outpatient (CLI) | payer MEDICARE, OTHER ==
[~2023-05-16] VITALS: Ht 154.9 cm; Wt 99.3 kg
[~2023-05-16 05:44] MED LIST changes: +BACL10TA PO
[2023-05-17] MEDS ORDERED: FOLI1TAB33 PO (15:27)
[2023-05-17] MEDS ORDERED: LACT1CAP72 PO (15:27)
[2023-05-17] MEDS ORDERED: CARV12.53 PO (15:27)
[2023-05-17] MEDS ORDERED: CHOL12509 PO (15:27)
[2023-05-17] MEDS ORDERED: METH2.5T PO (15:27)
[2023-05-17] MEDS ORDERED: MULT-593 PO (15:27)
[2023-05-17] MEDS ORDERED: LISI40TA9 PO (15:27)
== END 2023-05-17 15:43 | disposition home or self-care (01) ==
LOC: PREOP 05:44
PROVIDERS: ATTEND Surgery
DX: Z01.818 Encounter for other preprocedural examination (principal)

== ENCOUNTER → 2023-05-23 | Outpatient (CLI) | payer MEDICARE, OTHER ==
[~2023-05-23] MED LIST changes: +CARV12.53 PO; +CHOL12509 PO; +FOLI1TAB33 PO; +LACT1CAP72 PO; +LISI40TA9 PO; +METH2.5T PO; +MULT-593 PO
--- NOTE | 2023-05-23 16:34 | Diagnostic Imaging Report ---
INDICATION: Dysphagia. Patient ingested effervescent crystals as well as thin and thick barium and imaging of the esophagus was performed in multiple obliquities. 38 seconds of fluoroscopic time was utilized. Reference air, is 39 mGy. 33 images were obtained. Preliminary radiograph of the chest is unremarkable. The esophagus has a smooth contour. No mass is identified. There is a small hiatal hernia present. No definite stricture is detected. No gastroesophageal reflux was identified. IMPRESSION: Hiatal hernia. No other significant abnormality is detected. Dictated by: Dictated on workstation # [id number]
== END ==
LOC: RAD 09:45
PROVIDERS: ATTEND Surgery
DX: K44.9 Diaphragmatic hernia without obstruction or gangrene (principal)
CPT/HCPCS: 74220

== ENCOUNTER 2023-05-29 12:49 | Day surgery (SDC) | payer MEDICARE, OTHER ==
[~2023-05-29] VITALS: Ht 154.9 cm; Wt 99.3 kg
[2023-05-29] MEDS ORDERED: LACTATED RINGERS 1,000 ML 1,000 ML IV STA (12:50)
[2023-05-29] MEDS ORDERED: HURRICAINE EXT TUBE (BENZOCAINE) XX PRN (13:00)
--- NOTE | 2023-05-29 13:18 | Progress Note-Pre Operative ---
Pre-Operative Progress Note Date H&P Reviewed: May 29, 2023 Time H&P Reviewed: 13:17 History & Physical: H&P Reviewed, Patient Examed, No changes noted Pre-Operative Diagnosis: dysphagia PRISCILLA DAMIAN DO May 29, 2023 13:18
[2023-05-29 13:20] VITALS: BP 116/46
[2023-05-29] MEDS ORDERED: proPOfol INJECTION 200 MG/20 ML VIAL IV ONE (14:09)
--- NOTE | 2023-05-29 14:28 | Progress Note-Post Operative ---
Post-Operative Progess Note Surgeon (s)/Motor Runner (s) Surgeon PRISCILLA DAMIAN DO Motor Runner: NA Pre-Operative Diagnosis dysphagia Post-Operative Diagnosis hiatal hernia Procedure & Operative Findings Date of Procedure 05/29/23 Procedure Performed/Findings EGD with biopsies Anesthesia Type per MEDICAL OFFICE RECEPTIONIST Estimated Blood Loss Estimated blood loss (mL): none Specimens/Packing Specimens Removed antrum and GE RPISCILLA DAMIAN DO May 29, 2023 14:28
[2023-05-29 14:30] VITALS: BP 114/56
[2023-05-29] MEDS ORDERED: PANT40TA2 PO (14:31)
--- NOTE | 2023-05-29 14:31 | Anesthesia-General Post-Op ---
MAC Patient Condition Mental Status/LOC: Same as Preop Cardiovascular: Satisfactory Nausea/Vomiting: Absent Respiratory: Satisfactory Pain: Controlled Complications: Absent Post Op Complications Complications None Follow Up Care/Instructions Patient Instructions None needed. Anesthesiology Discharge Order Discharge Order Patient is doing well, no complaints, stable vital signs, no apparent adverse anesthesia problems. No complications reported per nursing. DENIZ GARCIA CRNA May 29, 2023 14:31
[2023-05-29 14:35] VITALS: BP 112/55
[2023-05-29 15:00] VITALS: BP 112/55
--- NOTE | 2023-05-29 21:18 | OPERATIVE REPORT ---
DATE OF SERVICE: 05/29/2023 PREOPERATIVE DIAGNOSIS: Dysphagia. POSTOPERATIVE DIAGNOSIS: Hiatal hernia. PROCEDURES: EGD with biopsies. SURGEON: Priscilla Bui DO ANESTHESIA: Per TRAVEL REGISTERED NURSE ONCOLOGY. ESTIMATED BLOOD LOSS: None. COMPLICATIONS: None. INDICATIONS: The patient is a 67-year-old female with dysphagia symptoms. She understands risks and benefits of procedure and wished to proceed. Consent was signed in chart. DESCRIPTION OF PROCEDURE: The patient was taken to endoscopy suite, placed in left lateral recumbent position. Timeout was performed. Scope was inserted in the mouth, down the esophagus, stomach and into the duodenum without difficulty. There were no polyps, masses or ulcerations within the duodenum. Scope was slowly retracted back into stomach, further insufflated. Biopsy of the antrum was obtained. No polyps, masses or ulcerations. Scope was retroflexed noting a hiatal hernia. Scope was then returned to its normal position, slowly withdrawn until distal esophagus. Biopsy of the GE junction was obtained. Some slight erythematous changes. No polyps, masses or ulcerations. Scope was slowly retracted back until completely removed. The patient tolerated the procedure well, no complications, taken to recovery room in stable condition. RECOMMENDATIONS: The patient will be on Protonix 40 mg daily. She will follow up in 2-3 weeks to discuss pathology results. Further recommendation pending symptoms and pathology. Job ID: [id number] DocumentID: [id number] Dictated Date: 05/29/2023 14:30:14 Upholstery Bundler Date: 05/29/2023 21:16:00 Dictated By: PRISCILLA BUI DO
== END 2023-05-29 15:00 | disposition home or self-care (01) ==
LOC: ENDO 12:49
PROVIDERS: ATTEND Surgery
DX: K44.9 Diaphragmatic hernia without obstruction or gangrene (principal)